=== PATIENT | female | born 1960 | race Caucasian/White ===

== ENCOUNTER 2021-04-21 01:45 | Emergency (ER) | payer BC, OTHER ==
[~2021-04-21] VITALS: Ht 175.3 cm; Wt 86.2 kg
[2021-04-21] MEDS ORDERED: ACETAMINOPHEN ES 500 MG TABLET PO ONE (02:00)
[2021-04-21] MEDS ORDERED: METOCLOPRAMIDE HCL 10 MG/2 ML VIAL IV ONE (02:00)
[2021-04-21] MEDS ORDERED: IV NORMAL SALINE 1000 ML BAG IV ONE (02:00)
[2021-04-21] MEDS ORDERED: diphenhydrAMINE 50 MG/1 ML VIAL IV ONE (02:00)
[2021-04-21] MEDS ORDERED: KETOROLAC TROMETHAMINE 30 MG INJ IVP ONE (02:00)
[2021-04-21 02:33] LABS: HEMATOCRIT 38.1 % (31.2-41.9); MEAN CORPUSCULAR HEMOGLOBIN 29.9 uug (24.7-32.8); MEAN CORPUSCULAR VOLUME 89.9 fL (75.5-95.3); PLATELET COUNT (AUTO) 415 K/uL (179-408)
[2021-04-21] MEDS ORDERED: KETOROLAC TROMETHAMINE 30 MG INJ ONE (02:33)
[2021-04-21] MEDS ORDERED: METOCLOPRAMIDE HCL 10 MG/2 ML VIAL ONE (02:33)
[2021-04-21] MEDS ORDERED: diphenhydrAMINE 50 MG/1 ML VIAL ONE (02:33)
[2021-04-21] MEDS ORDERED: ACETAMINOPHEN ES 500 MG TABLET ONE (02:33)
[2021-04-21 02:43] LABS: BILIRUBIN,DIRECT 0.1 mg/dL (0.0-0.2); BILIRUBIN,TOTAL 0.4 mg/dL (0.2-1.0); PHOSPHOROUS 3.4 mg/dL (2.5-4.9); TOTAL PROTEIN, SERUM 7.7 g/dL (6.4-8.2)
[2021-04-21 02:55] LABS: CREATININE 1.1 mg/dL (0.6-1.3); POTASSIUM 4.1 mmol/L (3.5-5.1)
--- NOTE | 2021-04-21 04:30 | NUR ---
Patient states "I feel better now."
[2021-04-21] MEDS ORDERED: IBUP-1957 PO (04:39)
--- NOTE | 2021-04-21 04:50 | NUR ---
IV removed. Catheter intact and site benign. Pressure and 4x4 gauze applied to site. No bleeding noted.
[2021-04-21 04:57] VITALS: BP 118/70
--- NOTE | 2021-04-21 04:57 | NUR ---
Patient discharged to home in stable condition with daughter taking patient home. Written and verbal after care instructions given. Patient verbalizes understanding of instructions. Stressed follow up or return to ER for worsening s/s.
== END 2021-04-21 04:59 | disposition home or self-care (01) ==
LOC: ER 01:53
DX: R51.9 Headache, unspecified (principal); R06.00 Dyspnea, unspecified; B94.8 Sequelae of other specified infectious and parasitic diseases; Z20.822 Contact with and (suspected) exposure to COVID-19; R94.31 Abnormal electrocardiogram [ECG] [EKG]; Z88.0 Allergy status to penicillin; Z86.69 Personal history of other diseases of the nervous system and sense organs; R91.8 Other nonspecific abnormal finding of lung field
CPT/HCPCS: 36415; 70450; 71045; 80048; 80076; 83735; 83880; 84100; 84484; 85025; 87426; 93005; 96374; 96375; 99285; J1200; J1885; J2765; 70030-TC; A4663; A9150; J7030

== ENCOUNTER 2023-08-28 23:50 | Emergency (ER) | payer BC ==
[~2023-08-28] VITALS: Ht 175.3 cm; Wt 90.7 kg
[~2023-08-28 23:50] MED LIST: IBUP-1957 PO
[2023-08-28 23:53] VITALS: O2SAT 99
[2023-08-29] MEDS ORDERED: ALBUTEROL SULFATE 2.5 MG/3 ML NEBU NEB ONE (02:00)
== END 2023-08-29 01:55 | disposition left against medical advice (07) ==
LOC: ER 23:58
DX: R06.02 Shortness of breath (principal); R05.9 Cough, unspecified; Z53.21 Procedure and treatment not carried out due to patient leaving prior to being seen by health care provider
CPT/HCPCS: A4606; A4663